=== PATIENT | female | born 1995 | race American Indian/Alaskan Native ===

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

== ENCOUNTER 2021-12-07 11:16 | Outpatient (CLI) | payer OTHER ==
--- NOTE | 2021-12-07 14:42 | Cat Scan Report ---
CT ABDOMEN AND PELVIS WITH AND WITHOUT CONTRAST: HISTORY: Hematuria COMPARISON: None. TECHNIQUE: CT images of the abdomen was obtained before and following administration of intravenous c ontrast. All CT scans at this location are performed using CT dose reduction for ALARA by means of a utomated exposure control CONTRAST: 100 ml of Omnipaque 300. FINDINGS: CT ABDOMEN: Lung Bases: No significant abnormality. Liver: No significant abnormality. Biliary: No significant abnormality. Spleen: No significant abnormality. Unenlarged. Pancreas: No significant abnormality. Adrenals: No significant abnormality. Kidneys: Both kidneys are normal size, contour and position. There are approximately 6 calyceal stone s scattered throughout the right kidney with the largest measuring 5 mm near mid pole. There are 3 st ones scattered throughout the left kidney with the largest measuring 4 mm near mid pole. There is a t iny subcentimeter cyst at the lower pole of the right kidney. No evidence for renal mass, ureteral st one or hydronephrosis. Lymphatics: No lymphadenopathy. Vasculature: No significant abnormality. Bowel/Peritoneum: No significant abnormality. No free air. No free fluid. CT PELVIS: : No significant abnormality. The bladder is mostly empty but unremarkable. Osseous Structures: No significant abnormality. Additional Findings: None IMPRESSION: 1. Bilateral nonobstructing nephrolithiasis as described. Signer Name: Lambert Lou Jr, MD Signed: 12/07/2021 2:37 PM Workstation Name: [id number]
== END 2021-12-07 11:17 | disposition home or self-care (01) ==
LOC: CT 11:16
DX: N20.0 Calculus of kidney (principal); R31.9 Hematuria, unspecified
CPT/HCPCS: 74178; Q9967